=== PATIENT | female | born 1940 | race Caucasian/White ===

== ENCOUNTER → 2017-06-17 | Outpatient (RCR) | payer MEDICARE ==
[~2017-06-17] MED LIST: COUMADIN3 MG PO; COUMADIN4 MG PO; COZAAR50 MG PO; DILTIAZEM 24HR180 M1 PO; KLOR-CON20 MEQ PO; LASIX40 MG PO; LEVOTHROID88 MCG PO; METAXALONE800 MG PO; NORCO 10-325 T1 EACH PO
== END ==
LOC: PT 06-07 09:36
PROVIDERS: ATTEND Specialist
DX: M17.12 Unilateral primary osteoarthritis, left knee (principal); M25.562 Pain in left knee; M25.662 Stiffness of left knee, not elsewhere classified; R29.6 Repeated falls; M62.81 Muscle weakness (generalized)
CPT/HCPCS: 97110 ×4; 97163; G8978; G8979

== ENCOUNTER 2017-07-05 13:00 | Outpatient (RCR) | payer MEDICARE | END 2017-07-18 | LOC: PT 13:00 | PROVIDERS: ATTEND Specialist | DX: M17.12 Unilateral primary osteoarthritis, left knee (principal); M25.562 Pain in left knee; M25.662 Stiffness of left knee, not elsewhere classified; M62.81 Muscle weakness (generalized); R29.6 Repeated falls | CPT/HCPCS: 97010; 97110 ×6; G8978; G8979 ×2; G8980 ==

== ENCOUNTER 2017-12-31 11:17 | Observation (INO) | payer MEDICARE ==
[~2017-12-31] VITALS: Ht 167.6 cm; Wt 110.8 kg
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
--- OUTSIDE RECORDS SUMMARY | 2017-12-31 11:20 | XMS REPORT | Summary of Care ---
Author Author [facility] Address Unknown Phone Unavailable Encounter [employer](ESPERANZA) [id number] Date(s): 10/26/15 - 11/24/15 [facility] Discharge Disposition: Home or Self Care Attending Physician: Sd Sauceda MD Vital Signs No data available for this section Problem List Condition Effective Dates Status Health [...] Active statins Active sulfa drugs Active Medications No data available for this section Results No data available for this section Immunizations Given and Recorded Vaccine Date Status Refusal Reason Hx pneumococcal vaccine 08/31/12 Given Procedures Procedure Date Related Diagnosis Body Site [...] Smoking Cessation Counseling No Assessment and Plan No data available for this section
--- OUTSIDE RECORDS SUMMARY | 2017-12-31 11:20 | XMS REPORT | Summary of Care ---
Author Author [facility] Address Unknown Phone Unavailable Encounter [employer](ESPERANZA) [id number] Date(s): 09/15/15 - 10/14/15 [facility] Discharge Disposition: Home or Self Care Attending [...]
--- OUTSIDE RECORDS SUMMARY | 2017-12-31 11:20 | XMS REPORT | CCD ---
Author Author Auto Generated Organization [facility] Address Unknown Phone Unavailable Care Team Providers Care Reimbursement Liaison Name Role Phone Adarsh Garland RP Allergies, Adverse Reactions, Alerts Substance Reaction Status NKDA Active Problem List Condition Effective Dates Status Appendectomy Active Back pain Active Blood transfusion Active Cholecystectomy Active Hyperlipidemia Active Hypertension Active Hypothyroid Active Hysterectomy Active Migraine Active Mitral regurgitation Active Tonsillotomy Active Vital Signs Most recent to oldest [Reference Range]: 1 2 Height 160.02 cm (02/13/2011 12:46:00) 160.02 cm (02/09/2011 14:36:00) Weight 123.182 kg (02/13/2011 12:46:00) 123.182 kg (02/09/2011 14:36:00) Results HEMATOLOGY Most recent to oldest [Reference Range]: 1 PT [12.0-14.7 seconds] 14.0 seconds (02/13/2011 13:30:00) INR [0.85-1.17] 1.08 1 (02/13/2011 13:30:00) PTT [22.9-35.8 seconds] 38.8 seconds 2 *HI* (02/13/2011 13:30:00) 1Interpretive Data: RECOMMENDED RANGES FOR PROTIME INR: 2.0-3.0 for most medical and surgical thromboembolic states. 2.5-3.5 for artificial heart valves and recurrent embolism.INR SHOULD BE USED ONLY FOR PATIENTS ON STABLE ANTICOAGULANT THERAPY. 2Interpretive Data: Heparin Therapeutic Range: 57 - 92 Seconds
--- NOTE | 2017-12-31 12:29 | Diagnostic Imaging Report ---
Exam: Head CT without contrast History: Syncope, LOC, unknown head trauma. Comparison studies: None Technique: Axial images were obtained from the skull base to the vertex. Coronal and sagittal images reconstructed from the axial data. Dose modulation, iterative reconstruction, and/or weight based adjustment of the mA/kV was utilized to reduce the radiation dose to as low as reasonably achievable. Radiation dose: Total DLP: 921 mGy*cm. Estimated effective dose: DLP x 0.015 Intravenous contrast: None Findings: Scalp: No abnormalities. Bones: No fractures, blastic or lytic lesions. Brain sulci: Appropriate for age. Ventricles: Normal in size and configuration. No hydrocephalus. Extra-axial spaces: No masses, no fluid collection. Parenchyma: No abnormal densities. No masses, acute hemorrhage, acute or chronic vascular insults. Sellar/suprasellar region: No abnormalities. Craniocervical junction: Patent foramen magnum. No Chiari one malformation. Incidental findings: Partially opacified left sphenoid sinus which is with peripheral mucosal thickening, contains central hyperdense inspissated secretions and is with mild chronic sclerotic changes IMPRESSION: 1. No acute abnormalities. 2. Chronic inflammatory changes in the left sphenoid sinus. Signed by: Dr. Michel Dockery M.D. on 12/31/2017 12:25 PM
[2017-12-31 12:39] LABS: BASOPHILS % 0.2 % (0.0-1.0); EOSINOPHILS # (AUTO) 0.2 (0.0-0.4); EOSINOPHILS % 2.9 % (0.0-6.0); HEMATOCRIT 40.2 % (34.2-44.1); HEMOGLOBIN 13.8 g/dL (12.0-16.0); LYMPHOCYTES # (AUTO) 2.1 (1.0-3.2); LYMPHOCYTES % 25.1 % (18.0-39.1); MEAN CORPUSCULAR HEMOGLOBIN 31.5 pg (28-32); MEAN CORPUSCULAR HGB CONC 34.3 g/dL (31-35); MEAN CORPUSCULAR VOLUME 91.8 fL (81-99); MONOCYTES % 12.1 % (4.4-11.3); NEUTROPHILS # (AUTO) 4.9 (2.1-6.9); NEUTROPHILS % 59.3 % (38.7-80.0); PLATELET COUNT 281 x10e3/uL (140-360); RED BLOOD COUNT 4.38 x10e6/uL (3.6-5.1); RED CELL DISTRIBUTION WIDTH 17.1 % (11.7-14.4)
[2017-12-31 12:58] LABS: ALANINE AMINOTRANSFERASE 12 IU/L (0-55); ALBUMIN/GLOBULIN RATIO 1.3 (0.8-2.0); ALKALINE PHOSPHATASE 97 IU/L (40-150); ANION GAP 18.4 mmol/L (8-16); BLOOD UREA NITROGEN 38 mg/dL (7-26); BUN/CREATININE RATIO 29 (6-25); CALCIUM 9.3 mg/dL (8.4-10.2); CARBON DIOXIDE 23 mmol/L (22-29); CHLORIDE 99 mmol/L (98-107); CREATININE, SERUM 1.33 mg/dL (0.57-1.11); EST GLOMERULAR FILTRATION RATE 39 ML/MIN (60-); GLUCOSE 117 mg/dL (74-118); POTASSIUM 4.4 mmol/L (3.5-5.1); SODIUM 136 mmol/L (136-145)
--- NOTE | 2017-12-31 12:59 | Diagnostic Imaging Report ---
Examination: Single AP view of the chest. COMPARISON: CT chest 01/07/2012 INDICATION: Syncope IMPRESSION: 1. Lines and Tubes: None 2. Lungs are grossly clear. No consolidation or effusion. 3. Cardiomediastinal silhouette is normal. Pulmonary vasculature is normal. 4. No acute bony abnormalities. Signed by: Dr. Tristan Mills M.D. on 12/31/2017 12:56 PM
[2017-12-31] MEDS ORDERED: METHOCARBAMOL 750 MG TAB PO ONE (14:30)
[2017-12-31] MEDS ORDERED: SODIUM CHLORIDE 0.9% 1000ML 1,000 ML IV SCH ×2 (15:13→18:30)
[2017-12-31] MEDS ORDERED: SODIUM CHLORIDE FLUSH 10 ML SYR INJ PRN (15:15)
[2017-12-31] MEDS ORDERED: ONDANSETRON HCL INJ 2 MG/ML VIAL IV PRN (15:15)
--- OUTSIDE RECORDS SUMMARY | 2017-12-31 15:31 | XMS REPORT | Clinical Summary ---
Author Author [facility] Address Unknown Phone Unavailable Care Team Providers Care Tourist Camp Attendant Name Role Phone Wilfred Curiel MD PCP Allergies Comments Active Allergy Reactions Severity Noted Date Adhesive Tape-Silicones 02/22/2017 Weakness Iamweib-Ymn-Tcr Reductase 02/21/2017 Inhibitors Sulfa (Sulfonamide 02/21/2017 Antibiotics) Medications End Date Status Medication Sig Dispensed Refills Start Date Active amIODarone (PACERONE) 100 Take 100 mg 0 MG tablet by mouth daily. Active thyroid, pork, (ARMOUR Take 90 mg by 0 THYROID) 90 mg tablet mouth daily. Active olmesartan (BENICAR) 40 Take 40 mg by 0 MG tablet mouth daily. Active calcium carbonate Take 600 mg 0 (CALCIUM 600) 600 mg by mouth 2 calcium (1,500 mg) tablet (two) times a day with meals. Active clonIDINE (CATAPRES-TTS) Place 1 patch 0 0.2 mg/24 hr on the skin once a week. Active diltiazem CD (CardIZEM Take 240 mg 0 CD) 240 MG 24 hr capsule by mouth daily. Active OMEGA-3 FATTY ACIDS/FISH Take 1,000 mg 0 OIL (FISH OIL OMEGA 3-6-9 by mouth 2 ORAL) (two) times a day. Active fluticasone (FLONASE) 50 2 sprays by 0 mcg/actuation nasal spray Each Nare route daily. Active glucosamine sulfate Take 500 mg 0 (GLUCOSAMINE) 500 mg by mouth. tablet Active hydroCHLOROthiazide Take 25 mg by 0 (HYDRODIURIL) 25 MG mouth daily. tablet Active lisinopril Take 20 mg by 0 (PRINIVIL,ZESTRIL) 20 mg mouth 2 (two) tablet times a day. Active methocarbamol (ROBAXIN) Take 500 mg 0 500 MG tablet by mouth 4 (four) times a day. Active niacin 500 MG tablet Take 500 mg 0 by mouth daily with breakfast. Active omega-3 acid ethyl esters Take 1 g by 0 (LOVAZA) 1 gram capsule mouth 2 (two) times a day. Active omeprazole (PriLOSEC) 20 Take 20 mg by 0 MG capsule mouth daily. Active cholecalciferol, vitamin Take 400 0 D3, (VITAMIN D3) 400 unit Units by tablet mouth daily. Active warfarin (COUMADIN) 3 MG Take 3 mg by 0 tablet mouth daily. Active cetirizine (ZyrTEC) 10 MG Take 10 mg by 0 tablet mouth daily. Active Problems Not on file Encounters Care Team Description Date Type Specialty Mey Gupta 02/22/2017 Anesthesia Gastroenterology Event Teofilo Giordano MD COLONOSCOPY 02/22/2017 Surgery Gastroenterology Teofilo Giordano MD 02/22/2017 Hospital Gastroenterology Encounter after 12/30/2016 Social History Date Tobacco Use Types Packs/Day Years Used Quit: 02/21/1974 Former Smoker Smokeless Tobacco: Never Used Tobacco Cessation: Counseling Given: No Alcohol Use Drinks/Week oz/Week Comments No Sex Assigned at Date Recorded Not on file Industry Job Start Date Occupation Not on file Not on file Not on file Travel End Travel History Travel Start No recent travel history available. Last Filed Vital Signs Time Taken Vital Sign Reading 02/22/2017 7:45 AM PHARMACY PICKING TECH Blood Pressure 120/53 02/22/2017 7:45 AM PHARMACY PICKING TECH Pulse 63 02/22/2017 7:27 AM PHARMACY PICKING TECH Temperature 36.4 C (97.5 F) 02/22/2017 7:45 AM PHARMACY PICKING TECH Respiratory Rate 20 02/22/2017 7:45 AM PHARMACY PICKING TECH Oxygen Saturation 99% - Inhaled Oxygen - Concentration - Weight - 02/22/2017 6:08 AM PHARMACY PICKING TECH Height 157.5 cm (5' 2") - Body Mass Index - Plan of Treatment Not on file Procedures Comments Procedure Name Priority Date/Time Associated Diagnosis SURGICAL PATHOLOGY Routine 02/22/2017 REQUEST 11:33 AM PHARMACY PICKING TECH ESOPHAGOGASTRODUODENOSCOP 02/22/2017 IRON DEFIENCY Y (EGD) 6:30 AM PHARMACY PICKING TECH D50.0,PERSONAL OF COLONIC POLYPS Z86.010 COLONOSCOPY 02/22/2017 IRON DEFIENCY 6:30 AM PHARMACY PICKING TECH D50.0,PERSONAL OF COLONIC POLYPS Z86.010 ECG 12-LEAD STAT 02/22/2017 6:00 AM PHARMACY PICKING TECH after 12/30/2016 Results * Surgical pathology request (02/22/2017 11:33 AM PHARMACY PICKING TECH) Case number [facility] DEPARTMENT OF PATHOLOGY AND GENOMIC MEDICINE Surgical pathology report [facility] DEPARTMENT OF PATHOLOGY AND GENOMIC MEDICINE Result status [facility] DEPARTMENT OF PATHOLOGY AND GENOMIC MEDICINE Performing Organization Address [facility] Phone Number [facility] DEPARTMENT [address] [place] [address] PATHOLOGY AND GENOMIC MEDICINE * ECG 12 lead (02/22/2017 6:00 AM PHARMACY PICKING TECH) Ventricular rate [facility] Atrial rate [facility] HI interval [facility] QRSD interval [facility] QT interval [facility] QTC interval [facility] P axis 1 [facility] QRS axis 1 [facility] T wave axis [facility] EKG impression [facility] MUSE Performing Organization Address [facility] Phone Number [facility] [address] [place] [address] after 12/30/2016 Insurance Payer Benefit Subscriber ID Type Phone Address Plan / Group AETNA MEDICARE AETNA xxxxxxxx HMO MEDICARE HMO/PPO [facility] Advance Directives Patient has advance care planning documents on file. For more information, anum e contact: Rodrigue Rivero [address] [place] [address]
--- OUTSIDE RECORDS SUMMARY | 2017-12-31 15:32 | XMS REPORT ---
Author Author [facility] Address Unknown Phone Unavailable Care Team Providers Care Rake Operator Name Role Phone Chavez KINSEY Unavailable Unavailable Problems This patient has no known problems. Allergies, Adverse Reactions, Alerts This patient has no known allergies or adverse reactions. Medications This patient has no known medications. Results Test Description Test Time Test Comments Text Results Atomic Results Result Comments CHEST SINGLE (PORTABLE) 2017-12-31 12:55:00 [place] [id number] Patient Name: MOLLY DOW MR #: [id number] : 1940 Age/Sex: 77/F Req #: [id number] Adm Physician: Ordered by: HARJEET KINSEY MD Report #: [id number] Location: ER Room/Bed: Procedure: [id number] DX/CHEST SINGLE (PORTABLE) Exam Date: 12/31/17 Exam Time: 1200 REPORT STATUS: Signed Examination: Single AP view of the chest. COMPARISON: CT chest 01/07/2012 INDICATION: Syncope IMPRESSION: 1. Lines and Tubes: None 2. Lungs are grossly clear. No consolidation or effusion. 3. Cardiomediastinal silhouette is normal. Pulmonary vasculature is normal. 4. No acute bony abnormalities. Signed by: Dr. Tamara Mills M.D. on 12/31/2017 12:56 PM Dictated By: TAMARA MILLS MD 55 Transcribed By: PETTY on 12/31/171255 COPY TO: HARJEET KINSEY MD CT BRAIN WO 2017-12-31 12:20:00 [place] [address] Patient Name: MOLLY DOW MR #: [id number] : 1940 Age/Sex: 77/F Req #: [id number] Adm Physician: Ordered by: HARJEET KINSEY MD Report #: [id number] Location: ER Room/Bed: Procedure: [id number] CT/CT BRAIN WO Exam Date: Exam Time: REPORT STATUS: Signed Exam: Head CT without contrast History: Syncope, LOC, unknown head trauma. Comparison studies: None Technique: Axial images were obtained from the skull base to the vertex. Coronal and sagittal images reconstructed from the axial data. Dose modulation, iterative reconstruction, and/or weight based adjustment of the mA/kV was utilized to reduce the radiation dose to as low as reasonably achievable. Radiation dose: Total DLP: 921 mGy*cm. Estimated effective dose: DLP x 0.015 Intravenous contrast: None Findings: Scalp: No abnormalities. Bones: No fractures, blastic or lytic lesions. Brain sulci: Appropriate for age. Ventricles: Normal in size and configuration. No hydrocephalus. Extra-axial spaces: No masses, no fluid collection. Parenchyma: No abnormal densities. No masses, acute hemorrhage, acute or chronic vascular insults. Sellar/suprasellar region: No abnormalities. Craniocervical junction: Patent foramen magnum. No Chiari one malformation. Incidental findings: Partially opacified left sphenoid sinus which is with peripheral mucosal thickening, contains central hyperdense inspissated secretions and is with mild chronic sclerotic changes IMPRESSION: 1. No acute abnormalities. 2. Chronic inflammatory changes in the left sphenoid sinus. Signed by: Dr. Oliver Dockery M.D. on 12/31/2017 12:25 PM Dictated By: OLIVER DOCKERY MD Electronically Sign ed By: OLIVER DOCKERY MD on 12/31/17 1225 Transcribed By: PETTY on 12/31/17 1225 COPY TO: HARJEET KINSEY MD
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
[2017-12-31 18:04] LABS: INR 1.7; PROTHROMBIN TIME 21.3 seconds (11.9-14.5)
[2017-12-31 18:18] VITALS: BP 152/66
[2017-12-31 18:32] VITALS: BP 152/66
[2017-12-31 18:56] VITALS: BP 152/66
[2017-12-31 20:00] VITALS: BP 139/59
--- NOTE | 2017-12-31 20:16 | Diagnostic Imaging Report ---
EXAMINATION: CT scan of the chest with contrast. TECHNIQUE: Helical CT images of the chest were performed from the lung apices to the level of the adrenal glands after the intravenous administration of 100 cc of Isovue 300. Coronal and sagittal reformatted images were obtained. COMPARISON: None. CLINICAL HISTORY:Dehydration, syncope DISCUSSION: LINES/TUBES: None. LUNGS AND AIRWAYS: The lungs are clear. No pulmonary nodules, masses or consolidation. The airways are normal, without endobronchial lesions. PLEURA: No pneumothorax or pleural effusions. HEART AND MEDIASTINUM: The thyroid gland is normal. The heart and pericardium are within normal limits. Coronary artery calcifications. LYMPH NODES: There is no mediastinal, hilar or axillary lymphadenopathy. ABDOMEN: Limited contrast-enhanced views of the upper abdomen show no abnormality within the visualized liver, spleen, pancreas, or kidneys. The adrenal glands are normal. BONES AND SOFT TISSUES: No acute bony abnormalities. IMPRESSION: No pulmonary embolism Signed by: Dr. Hugh Gonzalez M.D. on 12/31/2017 8:13 PM
[2017-12-31] MEDS ORDERED: IOPAMIDOL 370 MG/ML 200 ML INFUS..BTL INJ ONE (20:40)
[2017-12-31] MEDS ORDERED: SODIUM CHLORIDE 0.9% 50ML 50 ML ONE (20:40)
[2017-12-31 21:26] VITALS: BP 139/59
[2017-12-31] MEDS ORDERED: PRILOSEC OTC20 MG PO (22:53)
[2017-12-31] MEDS ORDERED: METHOCARBAMOL750 MG PO (22:53)
[2017-12-31] MEDS ORDERED: ZYRTEC10 M3 PO (22:53)
[2017-12-31] MEDS ORDERED: AMIODARONE HCL200 MG PO (22:53)
[2017-12-31] MEDS ORDERED: LISINOPRIL10 MG PO (22:53)
[2018-01-01] VITALS: BP 132/59
[2018-01-01 04:00] VITALS: BP 119/52
--- NOTE | 2018-01-01 05:52 | History and Physical ---
REASON FOR ADMISSION: Syncope. HISTORY OF PRESENT ILLNESS: Patient is a 77-year-old lady who was standing in the kitchen while cooking some chili where she noticed the acute onset of dizziness and a warm flushing type sensation where she then sat down, and then proceeded to kind of slide to the floor where she was witnessed to have passed out with no incontinence, but did have some mild jerking. Came to on her own within less than a minute. EMS was called who found her blood pressure to be on the low side. Therefore, was then brought to the hospital. Currently, she states she is feeling well. She said she had an episode of this approximately a year ago at an outside hospital where she had a negative workup for causes as far as cardiac or neurological etiologies. REVIEW OF SYSTEMS: Patient denies any chest pains, headaches, nausea, vomiting, dizziness, diarrhea, fever, chills. PAST MEDICAL HISTORY: Significant for hypertension, hyperlipidemia. MEDICATIONS: See MAR. ALLERGIES: STATINS. SOCIAL HISTORY: Nondrinker and nonsmoker. Lives at home. FAMILY HISTORY: Hypertension. PHYSICAL EXAMINATION VITALS: 96.7, pulse 71, blood pressure 132/59, sats 95%. GENERAL: She is in no apparent distress lying in bed and very cordial. NECK: Supple. No lymphadenopathy. No bruits. No JVD. CARDIOVASCULAR: Regular rate and rhythm. No murmurs, rubs or gallops. LUNGS: Clear to auscultation bilaterally. ABDOMEN: Good bowel sounds. Soft and nontender. EXTREMITIES: No clubbing or cyanosis. NEUROLOGIC: Nonfocal. Lower extremities 5/5 strength. ASSESSMENT AND PLAN 1. 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 I even offered to repeat the studies, but told her the likelihood of abnormal findings would be very low. She states that she does not want to repeat the studies, and she wants to follow up with her primary care physician and snuff grinder, and would like to be discharged today. 2. Dehydration: Will continue with intravenous fluids and check labs again this morning to see if they are improved. 3. Hypertension: Continue with current medications. 4. Hyperlipidemia: Continue with diet control. 5. Chronic kidney disease, stage 3: Continue to monitor post intravenous fluids. Please see hospital chart for full details. Job#: [id number] RI
[2018-01-01 06:08] LABS: ANION GAP 16.3 mmol/L (8-16); CALCIUM 8.6 mg/dL (8.4-10.2); CREATININE, SERUM 1.08 mg/dL (0.57-1.11); POTASSIUM 4.3 mmol/L (3.5-5.1)
[2018-01-01 07:44] VITALS: BP 113/53
[2018-01-01 08:03] VITALS: BP 113/53
[2018-01-01 11:15] VITALS: BP 128/58
[2018-01-01 15:26] VITALS: BP 122/64
[2018-01-01] MEDS ORDERED: SODIUM CHLORIDE 0.9% 1000ML 1,000 ML IV SCH (18:23)
== END 2018-01-01 15:08 | disposition home or self-care (01) ==
LOC: ER 11:17 → ERHOLD 15:15 → IMCU 18:14
PROVIDERS: ADMIT Internal Medicine; ATTEND Internal Medicine
DX: R55 Syncope and collapse (principal); E86.0 Dehydration; E78.5 Hyperlipidemia, unspecified; I12.9 Hypertensive chronic kidney disease with stage 1 through stage 4 chronic kidney disease, or unspecified chronic kidney disease; N18.3 Chronic kidney disease, stage 3 (moderate); Z94.0 Kidney transplant status
CPT/HCPCS: 36415 ×2; 70450; 71045; 71260; 80048; 80053; 83880; 84484; 85025; 85379; 85610; 87086; 87186; 93005 ×2; 93306; 99284; G0378 ×2; J7030; Q9967

== ENCOUNTER → 2018-06-25 | Day surgery (SDC) | payer MEDICARE ==
[2018-06-23 11:28] LABS: BASOPHILS % 0.4 % (0.0-1.0); EOSINOPHILS # (AUTO) 0.1 (0.0-0.4); EOSINOPHILS % 0.7 % (0.0-6.0); HEMATOCRIT 38.4 % (34.2-44.1); LYMPHOCYTES # (AUTO) 2.5 (1.0-3.2); LYMPHOCYTES % 37.3 % (18.0-39.1); MEAN CORPUSCULAR HEMOGLOBIN 30.7 pg (28-32); MEAN CORPUSCULAR HGB CONC 33.9 g/dL (31-35); MEAN CORPUSCULAR VOLUME 90.6 fL (81-99); MONOCYTES # (AUTO) 1.1 (0.2-0.8); MONOCYTES % 16.8 % (4.4-11.3); NEUTROPHILS % 44.7 % (38.7-80.0); PLATELET COUNT 274 x10e3/uL (140-360); RED BLOOD COUNT 4.24 x10e6/uL (3.6-5.1)
[2018-06-23 11:48] LABS: ANION GAP 13.5 mmol/L (8-16); CALCIUM 10.4 mg/dL (8.4-10.2); CREATININE, SERUM 1.11 mg/dL (0.57-1.11); POTASSIUM 4.5 mmol/L (3.5-5.1)
--- NOTE | 2018-06-23 11:58 | Diagnostic Imaging Report ---
EXAMINATION: PA and lateral views of the chest. COMPARISON: CT chest 12/31/2017 CLINICAL HISTORY: Preoperative study for orthopedic procedure DISCUSSION: Lungs are well-inflated and without focal consolidation, pleural effusion, or pneumothorax. Atherosclerotic calcification of the thoracic aorta with otherwise normal cardiomediastinal contour. No pulmonary edema. No acute osseous abnormality. 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 IMPRESSION: No acute cardiopulmonary abnormalities. Signed by: Dr. Michel Matthews M.D. on 06/23/2018 11:55 AM
[~2018-06-25] MED LIST changes: +AMIODARONE HCL200 MG PO; +ARMOUR THYROID90 MG PO; +BENICAR40 MG PO; +BUPIVACAINE 0.5%/EPI 30 ML SDV INJ ONE; +CALCIUM600 MG PO; +CEFAZOLIN SOD 2 GM/D5W 50ML 50 ML IV ONE; +DEXAMETHASONE SOD PHOS INJ 4 MG/ML VIAL ONE; +DILTIAZEM 24HR240 M1 PO; +ELIQUIS PO; +FENTANYL CITRATE/PF 100MCG/2 ML INJ ONE; +FLOVENT DISKUS50 MCG; +HYDRALAZINE HCL 20 MG/ML VIAL ONE; +HYDRALAZINE HCL25 MG PO; +HYDROMORPHONE 2MG/ML 2 MG/ML ML ONE; +LIDOCAINE HCL 2% LOCAL INJ 5 ML SDV VIAL INJ ONE; +LISINOPRIL10 MG PO; +MEPERIDINE HCL INJ 25 MG/ML VIAL ONE; +METHOCARBAMOL750 MG PO; +MIDAZOLAM HCL 2 MG/2 ML VIAL ONE; +NIACIN500 MG PO; +OMEGA 3-6-9 CO400 MG PO; +ONDANSETRON HCL INJ 2MG/ML 2ML 2 MG/ML VIAL ONE; +PRESERVISION A1 EACH PO; +PRILOSEC OTC20 MG PO; +PROPOFOL IV EMULSION 10 MG/ML 20 ML VIAL ONE; +SEVOFLURANE INHAL SOLN 250 ML PEN BTL ONE; +VITAMIN C1000 M2 PO; +VITAMIN D3 PO; +ZYRTEC10 M3 PO; +[UNRECOGNIZED DRUG - OTHER] PO
--- OUTSIDE RECORDS SUMMARY | 2018-06-25 08:15 | XMS REPORT | Clinical Summary ---
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 Active Problems Not on file Social History Date Tobacco Use Types Packs/Day [...] travel history available. Last Filed Vital Signs Not on file Plan of Treatment Not on file Results Not on fileafter 06/24/2017 Insurance Payer Benefit Subscriber ID Type Phone Address Plan / Group AETNA MEDICARE AETNA xxxxxxxx O MEDICARE HMO/PPO [facility] Advance Directives Patient has advance care planning documents on file. For more information, anum mclain contact: Rodrigue Rivero [address] [place] [address]
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
[2018-06-25 15:30] VITALS: BP 122/57
--- NOTE | 2018-06-27 00:06 | Operative Report ---
DATE OF PROCEDURE: 06/25/2018 SURGEON: Gopi Mead MD PREOPERATIVE DIAGNOSES: 1. Left knee medial meniscus tear. 2. Left knee degenerative joint disease of the knee. POSTOPERATIVE DIAGNOSES: 1. Left knee medial meniscus tear. 2. Left knee degenerative joint disease of the knee. 3. Multiple intra-articular loose bodies. OPERATION AND PROCEDURE PERFORMED: The patient underwent a left knee exam under anesthesia, left knee arthroscopy, left knee partial medial meniscectomy, left knee chondroplasty of the patella, the trochlea, the medial femoral condyle, the medial tibial plateau, the lateral femoral condyle, and the lateral tibial plateau. The patient also had removal of multiple loose bodies in the medial compartment. SELF STORAGE MANAGER: MARIE Graves. ANESTHESIA: General endotracheal intubation anesthesia. IV FLUIDS: Per the anesthesia record. BRIEF DESCRIPTION OF THE PATIENT'S OPERATIVE PROCEDURE: Ms. Chong was taken to the operating room, placed in the supine position on the operating table. Following induction of general anesthesia as well as endotracheal intubation, the patient's left lower extremity was examined under anesthesia. She was found to have a mild effusion within the joint, but otherwise ligamentously stable knee. The patient's lower extremity was prepped and draped in standard surgical fashion. A 2-port technique was used to provide this patient arthroscopic evaluation of the knee joint. Examination of the suprapatellar pouch and medial lateral gutters found no evidence of loose bodies. 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 The scope was advanced in the medial compartment. Examination of the medial compartment demonstrated a tear of the posterior horn and root of the medial meniscus. There was also chondromalacia of the articulating surfaces. There was also multiple loose bodies within the medial compartment. A shaver was placed in the knee joint. The loose bodies were excised. A combination of biting forceps and a motorized shaver were used to resect the torn portion of meniscus. Chondroplasties of the medial femoral condyle and medial tibial plateau were performed at this time. Scope was advanced into the intercondylar notch and the anterior cruciate ligament was identified and found to be intact. The scope was then advanced into the lateral compartment. Examination of the lateral compartment demonstrated chondromalacia of the articulating surfaces. A chondroplasty of the lateral femoral condyle and lateral tibial plateau were performed at this time. Scope was then placed in suprapatellar pouch. A chondroplasty of the patella and trochlea were performed. The knee was inflated with sterile normal saline. The portal sites were closed using 4-0 nylon suture. The portal sites as well as knee itself were injected with 0.5% Marcaine with epinephrine. Sterile dressings were applied. The patient was then awakened and taken to the postanesthesia care unit in stable condition. MD BRIAN Thakur/SIMONE /[id number]
== END | disposition home or self-care (01) ==
LOC: OR 08:14
PROVIDERS: ATTEND Specialist
DX: S83.222A Peripheral tear of medial meniscus, current injury, left knee, initial encounter (principal); S83.262A Peripheral tear of lateral meniscus, current injury, left knee, initial encounter; M17.12 Unilateral primary osteoarthritis, left knee; M23.42 Loose body in knee, left knee; M22.42 Chondromalacia patellae, left knee; M47.816 Spondylosis without myelopathy or radiculopathy, lumbar region; M54.2 Cervicalgia; G47.33 Obstructive sleep apnea (adult) (pediatric); K21.9 Gastro-esophageal reflux disease without esophagitis; I48.91 Unspecified atrial fibrillation; I10 Essential (primary) hypertension; I44.0 Atrioventricular block, first degree; E03.9 Hypothyroidism, unspecified; X58.XXXA Exposure to other specified factors, initial encounter; Z91.048 Other nonmedicinal substance allergy status; Z88.2 Allergy status to sulfonamides; Z88.8 Allergy status to other drugs, medicaments and biological substances; Z01.810 Encounter for preprocedural cardiovascular examination; Z01.812 Encounter for preprocedural laboratory examination; Z01.818 Encounter for other preprocedural examination; Z79.01 Long term (current) use of anticoagulants; Z68.42 Body mass index [BMI] 45.0-49.9, adult; Z86.718 Personal history of other venous thrombosis and embolism; Z87.891 Personal history of nicotine dependence
CPT/HCPCS: 29881; 36415; 71046; 80048; 85025; 93005; J0360; J0690; J1100; J1170; J2001; J2175; J2250; J2405; J2704